=== PATIENT | female | born 1965 | race Caucasian/White ===

== ENCOUNTER 2020-07-19 07:28 | Inpatient (IN) | payer BC ==
[2020-07-19] MEDS ORDERED: methylPREDNISolone Sodium Succinate 125 MG/2 ML SDV IVPUSH ONE (07:53)
[2020-07-19] MEDS ORDERED: Sodium Chloride 0.9% 1,000 ML IV ONE (07:53)
--- NOTE | 2020-07-19 07:53 | EDM.PDOC ---
ED HPI GENERAL MEDICAL PROBLEM - General Stated Complaint: AMBULANCE Time Seen by Provider: 07/19/20 07:28 Source of Information: Reports: Patient, EMS, EMS Notes Reviewed, RN, RN Notes Reviewed History Limitations: Reports: No Limitations - History of Present Illness INITIAL COMMENTS - FREE TEXT/NARRATIVE: Patient presents to ER per [facility] with complaint of shortness of breath. Patient states she has history of asthma, states yesterday she began not feeling well. After midnight began having increased shortness of breath. Patient states she has a nebulizer at home but she has not used it for quite some time. States her inhalers are almost out. Patient denies fever chills, nausea, vomiting, diarrhea. Admits to cough with minimal production. 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 Onset: Gradual - Related Data Allergies Allergy/AdvReac Type Severity Reaction Status Date / Time No Known Allergies Allergy Verified 07/19/20 07:48 Home Meds: Home Meds Albuterol [Ventolin HFA] 1 - 2 puff IH ASDIRECTED PRN 07/19/20 [History] Budesonide/Formoterol Fumarate [Symbicort 160-4.5 Mcg Inhaler] 6 gm IH DAILY 07/19/20 [History] ED ROS GENERAL - Review of Systems Review Of Systems: Comprehensive ROS is negative, except as noted in HPI. ED EXAM, GENERAL - Physical Exam Exam: See Below Exam Limited By: No Limitations General Appearance: Alert, WD/WN, Mild Distress Eye Exam: Bilateral Eye: EOMI, Normal Inspection Ears: Normal External Exam, Hearing Grossly Normal Nose: Normal Inspection Throat/Mouth: Normal Inspection, Normal Voice, No Airway Compromise Head: Atraumatic, Normocephalic Neck: Normal Inspection, Supple, Non-Tender, Full Range of Motion Respiratory/Chest: Chest Non-Tender, Decreased Breath Sounds, Accessory Muscle Use Cardiovascular: Normal Peripheral Pulses, Regular Rate, Rhythm, No Edema, No Gallop, No JVD, No Murmur, No Rub, Tachycardia Peripheral Pulses: 2+: Radial (L), Radial (R) GI/Abdominal: Normal Bowel Sounds, Soft, Non-Tender (Female) Exam: Deferred Rectal (Female) Exam: Deferred Back Exam: Normal Inspection, Full Range of Motion, NT Extremities: Normal Inspection, Normal Range of Motion, Non-Tender, Normal Capillary Refill, No Pedal Edema Neurological: Alert, Oriented, CN II-XII Intact, Normal Cognition, Normal Gait, Normal Reflexes, No Motor/Sensory Deficits Psychiatric: Normal Affect, Normal Mood, Anxious Skin Exam: Warm, Dry, Intact, Normal Color, No Rash Lymphatic: No Adenopathy Course - Vital Signs Last Recorded V/S: Last Vital Signs Temp 98.1 F 07/19/20 07:51 Pulse 110 H 07/19/20 07:51 Resp 24 H 07/19/20 07:51 BP 117/57 L 07/19/20 07:51 Pulse Ox 92 L 07/19/20 07:51 - Orders/Labs/Meds Orders: Active Orders 24 hr Category Date Time Status Admission Diagnosis [ADT] Stat ADT 07/19/20 12:29 Ordered Admission Status [Patient Status] [ADT] Routine ADT 07/19/20 12:29 Ordered EKG Documentation Completion [RC] STAT Care 07/19/20 07:32 Active RT Aerosol Therapy [RC] ASDIRECTED Care 07/19/20 12:29 Active Labs: Laboratory Tests 07/19/20 07/19/20 07/19/20 Range/Units 07:28 07:38 07:38 WBC 11.2 H (5.0-10.0) 10^3/uL RBC 4.44 (4.2-5.4) 10^6/uL Hgb 12.8 (12.0-16.0) g/dL Hct 39.4 (37.0-47.0) % MCV 88.7 (80-100) fL MCH 28.8 (27.0-34.0) pg MCHC 32.5 L (33.0-35.0) g/dL Plt Count 236 (150-450) 10^3/uL Neut % (Auto) 83.3 H (42.2-75.2) % Lymph % (Auto) 7.8 L (20.5-50.1) % [place] % (Auto) 6.6 (2-8) % Eos % (Auto) 2.0 (1.0-3.0) % Baso % (Auto) 0.3 (0.0-1.0) % PT (9.0-12.0) SEC INR (0.9-1.2) D-Dimer, Quantitative (0-400) ng/mL Sodium 138 (136-145) mmol/L Potassium 3.0 L (3.5-5.1) mmol/L Chloride 101 (98-107) mmol/L Carbon Dioxide 25 (21-32) mmol/L Anion Gap 15.0 H (7-13) mEq/L BUN 7 (7-18) mg/dL Creatinine 0.69 (0.55-1.02) mg/dL Est Cr Clr Drug Dosing 80.94 mL/min Estimated GFR (MDRD) > 60 BUN/Creatinine Ratio 10.1 (No establ ref range) Glucose 130 H (74-99) mg/dL Calcium 8.7 (8.5-10.1) mg/dL Total Bilirubin 0.6 (0.2-1.0) mg/dL AST 28 (15-37) U/L ALT 42 (14-59) U/L Alkaline Phosphatase 123 H (46-116) U/L Troponin I < 0.017 (0.000-0.056) ng/mL C-Reactive Protein 1.8 H (0.0-0.9) mg/dL Total Protein 7.7 (6.4-8.2) g/dL Albumin 3.9 (3.4-5.0) g/dL Globulin 3.8 Albumin/Globulin Ratio 1.0 SARS CoV-2 RNA Rapid MIKAYLA Negative (NEGATIVE) 07/19/20 07/19/20 Range/Units 07:38 07:38 WBC (5.0-10.0) 10^3/uL RBC (4.2-5.4) 10^6/uL Hgb (12.0-16.0) g/dL Hct (37.0-47.0) % MCV (80-100) fL MCH (27.0-34.0) pg MCHC (33.0-35.0) g/dL Plt Count (150-450) 10^3/uL Neut % (Auto) (42.2-75.2) % Lymph % (Auto) (20.5-50.1) % Charles % (Auto) (2-8) % Eos % (Auto) (1.0-3.0) % Baso % (Auto) (0.0-1.0) % PT 9.4 (9.0-12.0) SEC INR 1.0 (0.9-1.2) D-Dimer, Quantitative 133 (0-400) ng/mL Sodium (136-145) mmol/L Potassium (3.5-5.1) mmol/L Chloride (98-107) mmol/L Carbon Dioxide (21-32) mmol/L Anion Gap (7-13) mEq/L BUN (7-18) mg/dL Creatinine (0.55-1.02) mg/dL Est Cr Clr Drug Dosing mL/min Estimated GFR (MDRD) BUN/Creatinine Ratio (No establ ref range) Glucose (74-99) mg/dL Calcium (8.5-10.1) mg/dL Total Bilirubin (0.2-1.0) mg/dL AST (15-37) U/L ALT (14-59) U/L Alkaline Phosphatase (46-116) U/L Troponin I (0.000-0.056) ng/mL C-Reactive Protein (0.0-0.9) mg/dL Total Protein (6.4-8.2) g/dL Albumin (3.4-5.0) g/dL Globulin Albumin/Globulin Ratio SARS CoV-2 RNA Rapid MIKAYLA (NEGATIVE) Meds: Medications Discontinued Medications Generic Name Dose Route Start Last Admin Trade Name Jonasq PRN Reason Stop Dose Admin Albuterol/Ipratropium 3 ml 07/19/20 12:29 Duoneb 3.0-0.5 Mg/3 Ml NEB 07/19/20 12:30 ONETIME ONE Sodium Chloride 1,000 mls @ 999 mls/hr 07/19/20 07:53 07/19/20 08:18 Normal Saline IV 07/19/20 08:53 999 mls/hr .BOLUS ONE Administration Ceftriaxone Sodium 1 gm/ 50 mls @ 100 mls/hr 07/19/20 08:51 07/19/20 09:17 Sodium Chloride IV 07/19/20 09:20 100 mls/hr ONETIME ONE Administration Magnesium Sulfate 2 gm/ Premix 50 mls @ 25 mls/hr 07/19/20 10:11 07/19/20 10:48 IV 07/19/20 12:10 200 mls/hr ONETIME ONE Infusion Methylprednisolone Sodium Succinate 125 mg 07/19/20 07:53 07/19/20 08:18 Solu-Medrol IVPUSH 07/19/20 07:54 125 mg ONETIME ONE Administration Potassium Chloride 40 meq 07/19/20 08:53 07/19/20 09:15 Klor-Con 10 PO 07/19/20 08:54 40 meq ONETIME ONE Administration - Re-Assessments/Exams Free Text/Narrative Re-Assessment/Exam: 07/19/20 12:30 Discussed patient case with Dr. Beauchamp who agreed to accept the patient for inpatient admission. Departure - Departure Time of Disposition: 12:31 Disposition: Admitted As Inpatient 64 Condition: Fair Clinical Impression: Acute asthma, Hypokalemia - Discharge Information *PRESCRIPTION DRUG MONITORING PROGRAM REVIEWED*: No *COPY OF PRESCRIPTION DRUG MONITORING REPORT IN PATIENT CLAUDIO: No Referrals: PCP,None [Primary Care Provider] - Sepsis Event Note (ED) - Focused Exam Vital Signs: Vital Signs Temp Pulse Resp BP Pulse Ox 07/19/20 07:51 98.1 F 110 H 24 H 117/57 L 92 L - My Orders Last 24 Hours: My Active Orders 07/19/20 07:32 EKG Documentation Completion [RC] STAT 07/19/20 12:29 Admission Diagnosis [ADT] Stat Admission Status [Patient Status] [ADT] Routine RT Aerosol Therapy [RC] ASDIRECTED - Assessment/Plan Last 24 Hours: My Active Orders 07/19/20 07:32 EKG Documentation Completion [RC] STAT 07/19/20 12:29 Admission Diagnosis [ADT] Stat Admission Status [Patient Status] [ADT] Routine RT Aerosol Therapy [RC] ASDIRECTED
[2020-07-19 08:12] LABS: CHLORIDE,CL 101 mmol/L (98-107); SODIUM,NA 138 mmol/L (136-145)
--- NOTE | 2020-07-19 08:46 | CR ---
PROCEDURE INFORMATION: Exam: XR Chest, 1 View Exam date and time: 07/19/2020 8:31 AM Age: 55 years old Clinical indication: Chest pain; Type not specified TECHNIQUE: Imaging protocol: XR of the chest Views: 1 view. COMPARISON: No relevant prior studies available. FINDINGS: Lungs: No lung consolidation or pulmonary edema. Pleural space: No pleural effusion or pneumothorax. Heart/Mediastinum: The cardiac silhouette is not enlarged. The mediastinal contours are normal. Bones/joints: No acute osseous abnormality. IMPRESSION: No acute abnormality.
[2020-07-19] MEDS ORDERED: cefTRIAXone 1 GM in Sodium Chloride 0.9% 50 ML IV ONE (08:51)
[2020-07-19] MEDS ORDERED: Potassium Chloride 10 MEQ Tab.ER PO ONE ×2 (08:53→14:30)
[2020-07-19] MEDS ORDERED: Magnesium Sulfate/Water 2 GM in Premix Bag 1 BAG IV ONE (10:11)
[2020-07-19] MEDS ORDERED: Albuterol/Ipratropium 3.0-0.5 MG/3 ML Neb Soln NEB ONE (12:29)
[2020-07-19] MEDS ORDERED: Albuterol 0.083% 2.5 MG/3 ML Neb Soln NEB PRN (14:05)
--- NOTE | 2020-07-19 14:09 | PCM.HP ---
H&P History of Present Illness - General Date of Service: 07/19/20 Admit Problem/Dx: Admission Diagnosis/Problem Admission Diagnosis/Problem Asthma with acute exacerbation Source of Information: Patient History Limitations: Reports: No Limitations - History of Present Illness Initial Comments - Free Text/Narative: Patient is a 55-year-old female with a history of asthma who presented to the ER with complaints of shortness of breath, wheezing and cough. Patient reports th at she has been having intermittent shortness of breath and cough for the past 1 month. This has progressively gotten worse. She has had to use her rescue inhaler more than 2 times weekly and in the last 2 days several times a day. She reports noncompliance with her medications. Today, her symptoms were severe enough that she presented to the ER. Vital signs were notable for tachycardia and tachypnea. She received nebs and magnesium sulfate. Her symptoms improved temporarily. Checks x-ray was unremarkable. Labs were significant for potassium of 3.0. - Related Data Allergies/Adverse Reactions: Allergies Allergy/AdvReac Type Severity Reaction Status Date / Time No Known Allergies Allergy Verified 07/19/20 14:05 Home Medications: Home Meds Albuterol [Ventolin HFA] 1 - 2 puff IH ASDIRECTED PRN 07/19/20 [History] Budesonide/Formoterol Fumarate [Symbicort 80-4.5 MCG] 2 puff INH DAILY 07/19/20 [History] Past Medical History HEENT History: Reports: None Cardiovascular History: Reports: None Respiratory History: Reports: Asthma Gastrointestinal History: Reports: None Genitourinary History: Reports: None SPONGE HOOKER History: Reports: None Musculoskeletal History: Reports: None Neurological History: Reports: None Psychiatric History: Reports: None Endocrine/Metabolic History: Reports: None Hematologic History: Reports: None Immunologic History: Reports: None Oncologic (Cancer) History: Reports: None Dermatologic History: Reports: None - Past Surgical History Head Surgeries/Procedures: Reports: None Social & Family History - Family History Family Medical History: Noncontributory - Tobacco Use Smoking Status *Q: Never Smoker Second Hand Smoke Exposure: No - Caffeine Use Caffeine Use: Reports: None - Recreational Drug Use Recreational Drug Use: No H&P Review of Systems - Review of Systems: Review Of Systems: See Below General: Reports: No Symptoms HEENT: Reports: No Symptoms Pulmonary: Reports: Shortness of Breath, Wheezing, Cough Cardiovascular: Reports: No Symptoms Gastrointestinal: Reports: No Symptoms Genitourinary: Reports: No Symptoms Musculoskeletal: Reports: No Symptoms Skin: Reports: No Symptoms Psychiatric: Reports: No Symptoms Neurological: Reports: No Symptoms Hematologic/Lymphatic: Reports: No Symptoms Immunologic: Reports: No Symptoms Exam - Exam Exam: See Below - Vital Signs Vital Signs: Last Vital Signs Temp 98.1 F 07/19/20 07:51 Pulse 90 07/19/20 12:36 Resp 24 H 07/19/20 07:51 BP 117/57 L 07/19/20 07:51 Pulse Ox 92 L 07/19/20 07:51 Weight: 169 lb 12.8 oz - Exam General: Alert, Oriented HEENT: Conjunctiva Clear, EOMI Neck: Supple, Trachea Midline Lungs: Normal Respiratory Effort, Wheezing Cardiovascular: Regular Rhythm, Normal S1, Normal S2, Tachycardia GI/Abdominal Exam: Normal Bowel Sounds, Non-Tender, No Distention Back Exam: Normal Inspection, Full Range of Motion Extremities: Normal Inspection, Normal Range of Motion Skin: Warm, Dry, Intact Neurological: Cranial Nerves Intact, Reflexes Equal Bilateral Neuro Extensive - Mental Status: Alert, Oriented x3, Normal Mood/Affect, Memory Intact Neuro Extensive - Motor, Sensory, Reflexes: CN II-XII Intact, Normal Gait Psychiatric: Alert, Normal Affect, Normal Mood - Patient Data Lab Results Last 24 hrs: Laboratory Results - last 24 hr 07/19/20 07/19/20 07/19/20 Range/Units 07:28 07:38 07:38 WBC 11.2 H (5.0-10.0) 10^3/uL RBC 4.44 (4.2-5.4) 10^6/uL Hgb 12.8 (12.0-16.0) g/dL Hct 39.4 (37.0-47.0) % MCV 88.7 (80-100) fL MCH 28.8 (27.0-34.0) pg MCHC 32.5 L (33.0-35.0) g/dL Plt Count 236 (150-450) 10^3/uL Neut % (Auto) 83.3 H (42.2-75.2) % Lymph % (Auto) 7.8 L (20.5-50.1) % [place] % (Auto) 6.6 (2-8) % Eos % (Auto) 2.0 (1.0-3.0) % Baso % (Auto) 0.3 (0.0-1.0) % PT (9.0-12.0) SEC INR (0.9-1.2) D-Dimer, Quantitative (0-400) ng/mL Sodium 138 (136-145) mmol/L Potassium 3.0 L (3.5-5.1) mmol/L Chloride 101 (98-107) mmol/L Carbon Dioxide 25 (21-32) mmol/L Anion Gap 15.0 H (7-13) mEq/L BUN 7 (7-18) mg/dL Creatinine 0.69 (0.55-1.02) mg/dL Est Cr Clr Drug Dosing 80.94 mL/min Estimated GFR (MDRD) > 60 BUN/Creatinine Ratio 10.1 (No establ ref range) Glucose 130 H (74-99) mg/dL Calcium 8.7 (8.5-10.1) mg/dL Total Bilirubin 0.6 (0.2-1.0) mg/dL AST 28 (15-37) U/L ALT 42 (14-59) U/L Alkaline Phosphatase 123 H (46-116) U/L Troponin I < 0.017 (0.000-0.056) ng/mL C-Reactive Protein 1.8 H (0.0-0.9) mg/dL Total Protein 7.7 (6.4-8.2) g/dL Albumin 3.9 (3.4-5.0) g/dL Globulin 3.8 Albumin/Globulin Ratio 1.0 SARS CoV-2 RNA Rapid MIKAYLA Negative (NEGATIVE) 07/19/20 07/19/20 Range/Units 07:38 07:38 WBC (5.0-10.0) 10^3/uL RBC (4.2-5.4) 10^6/uL Hgb (12.0-16.0) g/dL Hct (37.0-47.0) % MCV (80-100) fL MCH (27.0-34.0) pg MCHC (33.0-35.0) g/dL Plt Count (150-450) 10^3/uL Neut % (Auto) (42.2-75.2) % Lymph % (Auto) (20.5-50.1) % [place] % (Auto) (2-8) % Eos % (Auto) (1.0-3.0) % Baso % (Auto) (0.0-1.0) % PT 9.4 (9.0-12.0) SEC INR 1.0 (0.9-1.2) D-Dimer, Quantitative 133 (0-400) ng/mL Sodium (136-145) mmol/L Potassium (3.5-5.1) mmol/L Chloride (98-107) mmol/L Carbon Dioxide (21-32) mmol/L Anion Gap (7-13) mEq/L BUN (7-18) mg/dL Creatinine (0.55-1.02) mg/dL Est Cr Clr Drug Dosing mL/min Estimated GFR (MDRD) BUN/Creatinine Ratio (No establ ref range) Glucose (74-99) mg/dL Calcium (8.5-10.1) mg/dL Total Bilirubin (0.2-1.0) mg/dL AST (15-37) U/L ALT (14-59) U/L Alkaline Phosphatase (46-116) U/L Troponin I (0.000-0.056) ng/mL C-Reactive Protein (0.0-0.9) mg/dL Total Protein (6.4-8.2) g/dL Albumin (3.4-5.0) g/dL Globulin Albumin/Globulin Ratio SARS CoV-2 RNA Rapid MIKAYLA (NEGATIVE) Result Diagrams: 07/19/20 07:38 07/19/20 07:38 Problem List Initiated/Reviewed/Updated: Yes Orders Last 24hrs: Active Orders 24 hr Category Date Time Status Admission Diagnosis [ADT] Stat ADT 07/19/20 12:29 Ordered Admission Status [Patient Status] [ADT] Routine ADT 07/19/20 12:29 Active Antiembolic Devices [RC] PER UNIT ROUTINE Care 07/19/20 14:07 Ordered Oxygen Therapy [RC] PRN Care 07/19/20 14:05 Ordered RT Aerosol Therapy [RC] ASDIRECTED Care 07/19/20 14:07 Ordered Up ad Anabella [RC] ASDIRECTED Care 07/19/20 14:05 Ordered VTE/DVT Education [RC] PER UNIT ROUTINE Care 07/19/20 14:05 Ordered Vital Signs [RC] Q4H Care 07/19/20 14:05 Ordered Regular Diet [DIET] Diet 07/19/20 Lunch Ordered Albuterol [Proventil Neb Soln] Med 07/19/20 14:05 Ordered 2.5 mg NEB Q4HRRT PRN Albuterol/Ipratropium [DuoNeb 3.0-0.5 MG/3 ML] Med 07/19/20 18:00 Ordered 3 ml NEB Q6HRRT Heparin Sodium Med 07/19/20 22:00 Ordered 5,000 units SUBCUT Q8HR predniSONE Med 07/20/20 14:08 Ordered 40 mg PO WITHBREAKFAST Antiembolic Hose [OM.PC] Per Unit Routine Oth 07/19/20 14:05 Ordered Resuscitation Status Routine Resus Stat 07/19/20 14:05 Ordered Assessment/Plan Comment:: Acute asthma exacerbation Scheduled duo nebs PRN albuterol Prednisone 40 mg daily x5 days Oxygen supplementation as needed Hypokalemia Replace potassium Repeat BMP tomorrow morning
[2020-07-19] MEDS: Heparin Sodium 5,000 Units/ML Vial SUBCUT SCH ×2 (15:18→21:32)
[2020-07-19] MEDS: POTASSIUM CHLORIDE IV SCH ×4 (15:18→20:08)
[2020-07-19] MEDS: LIDOCAINE 1% IV SCH ×4 (15:18→20:08)
[2020-07-19] MEDS ORDERED: Sodium Chloride 0.9% 10 ML Syringe FLUSH PRN (15:56)
[2020-07-19] MEDS: Albuterol/Ipratropium 3.0-0.5 MG/3 ML Neb Soln NEB SCH (18:26)
[2020-07-20] MEDS: Albuterol/Ipratropium 3.0-0.5 MG/3 ML Neb Soln NEB SCH ×2 (00:57→07:15)
[2020-07-20] MEDS: Heparin Sodium 5,000 Units/ML Vial SUBCUT SCH (05:19)
[2020-07-20 11:53] LABS: ANION GAP 13.9 mEq/L (7-13); CHLORIDE,CL 102 mmol/L (98-107); SODIUM,NA 137 mmol/L (136-145)
--- NOTE | 2020-07-20 13:00 | PCM.DCSUM1 ---
Discharge Summary - Hospital Course Free Text/Narrative:: Patient is a 55-year-old female with a history of asthma who presented to the ER with complaints of worsening shortness of breath, wheezing and cough Over the course of 1 month. She also reported noncompliance with medications. Checks x- ray was unremarkable. Labs were significant for potassium of 3.0. Patient received duo nebs and prednisone for acute asthma exacerbation, and potassium replacement for hypokalemia. Her respiratory status improved. She had leukocytosis which was likely stress-induced and also due to steroids received. Diagnosis: Stroke: No - Discharge Data Discharge Date: 07/20/20 Discharge Disposition: Home, Self-Care 01 Condition: Good - Referral to Home Health Primary Care Physician: Sofia Ellington NP - Patient Instructions Diet: Regular Diet as Tolerated Activity: As Tolerated - Discharge Plan *PRESCRIPTION DRUG MONITORING PROGRAM REVIEWED*: Not Applicable *COPY OF PRESCRIPTION DRUG MONITORING REPORT IN PATIENT CLAUDIO: Not Applicable Prescriptions/Med Rec: predniSONE 40 mg PO WITHBREAKFAST #3 tablet Home Medications: Home Meds Albuterol [Ventolin HFA] 1 - 2 puff IH ASDIRECTED PRN 07/19/20 [History] Budesonide/Formoterol Fumarate [Symbicort 80-4.5 MCG] 2 puff INH DAILY 07/19/20 [History] predniSONE 40 mg PO WITHBREAKFAST #3 tablet 07/20/20 [Rx] Oxygen Therapy Mode: Room Air Patient Handouts: Bronchospasm, Adult, [id number], Asthma, Adult, [id number] Referrals: Sofia Ellington NP [Primary Care Provider] - - Discharge Summary/Plan Comment DC Time >30 min.: Yes - General Info Date of Service: 07/20/20 Admission Dx/Problem (Free Text: Admission Diagnosis/Problem Admission Diagnosis/Problem Asthma with acute exacerbation Subjective Update: Patient seen and examined today. She is doing a lot better. Still having coughing but not short of breath. She was able to walk around the halls with good oxygen saturation. Functional Status: Reports: Pain Controlled - Review of Systems General: Reports: No Symptoms HEENT: Reports: No Symptoms Pulmonary: Reports: Cough. Denies: Shortness of Breath, Wheezing Cardiovascular: Reports: No Symptoms Gastrointestinal: Reports: No Symptoms Genitourinary: Reports: No Symptoms Musculoskeletal: Reports: No Symptoms Skin: Reports: No Symptoms Neurological: Reports: No Symptoms Psychiatric: Reports: No Symptoms - Patient Data Vitals - Most Recent: Last Vital Signs Temp 99.2 F 07/20/20 07:47 Pulse 84 07/20/20 11:47 Resp 20 07/20/20 07:47 BP 124/64 07/20/20 07:47 Pulse Ox 93 L 07/20/20 07:47 Weight - Most Recent: 169 lb 12.8 oz I&O - Last 24 hours: Intake & Output 07/19/20 07/20/20 07/20/20 22:59 06:59 14:59 Intake Total 399 910 350 Balance 399 910 350 Lab Results - Last 24 hrs: Laboratory Results - last 24 hr 07/20/20 07/20/20 Range/Units 11:25 11:25 WBC 12.4 H (5.0-10.0) 10^3/uL RBC 4.39 (4.2-5.4) 10^6/uL Hgb 12.6 (12.0-16.0) g/dL Hct 38.9 (37.0-47.0) % MCV 88.6 (80-100) fL MCH 28.7 (27.0-34.0) pg MCHC 32.4 L (33.0-35.0) g/dL Plt Count 275 (150-450) 10^3/uL Sodium 137 (136-145) mmol/L Potassium 3.9 (3.5-5.1) mmol/L Chloride 102 (98-107) mmol/L Carbon Dioxide 25 (21-32) mmol/L Anion Gap 13.9 H (7-13) mEq/L BUN 11 (7-18) mg/dL Creatinine 0.65 (0.55-1.02) mg/dL Est Cr Clr Drug Dosing 85.93 mL/min Estimated GFR (MDRD) > 60 Glucose 107 H (74-99) mg/dL Calcium 9.5 (8.5-10.1) mg/dL Med Orders - Current: Current Medications Albuterol (Proventil Neb Soln) 2.5 mg NEB Q4HRRT PRN PRN Reason: Dyspnea Albuterol/Ipratropium (Duoneb 3.0-0.5 Mg/3 Ml) 3 ml NEB Q6HRRT MARIAJOSE Last Admin: 07/20/20 07:15 Dose: 3 ml Documented by: Heparin Sodium (Porcine) (Heparin Sodium) 5,000 units SUBCUT Q8HR [facility] Last Admin: 07/20/20 05:19 Dose: 5,000 units Documented by: Prednisone (Prednisone) 40 mg PO WITHBREAKFAST [facility] Sodium Chloride (Saline Flush) 10 ml FLUSH ASDIRECTED PRN PRN Reason: Keep Vein Open Discontinued Medications Albuterol/Ipratropium (Duoneb 3.0-0.5 Mg/3 Ml) 3 ml NEB ONETIME ONE Stop: 07/19/20 12:30 Last Admin: 07/19/20 12:36 Dose: 3 ml Documented by: Sodium Chloride (Normal Saline) 1,000 mls @ 999 mls/hr IV .BOLUS ONE Stop: 07/19/20 08:53 Last Admin: 07/19/20 08:18 Dose: 999 mls/hr Documented by: Ceftriaxone Sodium 1 gm/ (Sodium Chloride) 50 mls @ 100 mls/hr IV ONETIME ONE Stop: 07/19/20 09:20 Last Admin: 07/19/20 09:17 Dose: 100 mls/hr Documented by: Magnesium Sulfate 2 gm/ Premix 50 mls @ 25 mls/hr IV ONETIME ONE Stop: 07/19/20 12:10 Last Infusion: 07/19/20 10:48 Dose: 200 mls/hr Documented by: Potassium Chloride 10 meq/ (Lidocaine HCl 1 ml/ Premix) 101 mls @ 101 mls/hr IV Q1H MARIAJOSE Stop: 07/19/20 18:59 Last Infusion: 07/19/20 21:17 Dose: Infused Documented by: Methylprednisolone Sodium Succinate (Solu-Medrol) 125 mg IVPUSH ONETIME ONE Stop: 07/19/20 07:54 Last Admin: 07/19/20 08:18 Dose: 125 mg Documented by: Potassium Chloride (Klor-Con 10) 40 meq PO ONETIME ONE Stop: 07/19/20 08:54 Last Admin: 07/19/20 09:15 Dose: 40 meq Documented by: Potassium Chloride (Klor-Con 10) 40 meq PO ONETIME ONE Stop: 07/19/20 14:31 Last Admin: 07/19/20 15:18 Dose: 40 meq Documented by: - Exam General: Reports: Alert, Oriented HEENT: Reports: Pupils Equal, Pupils Reactive, EOMI, Mucous Membr. Moist/[place] Neck: Reports: Supple Lungs: Reports: Clear to Auscultation, Normal Respiratory Effort Cardiovascular: Reports: Regular Rate, Regular Rhythm GI/Abdominal Exam: Normal Bowel Sounds, Soft, Non-Tender, No Organomegaly, No Distention, No Abnormal Bruit, No Mass, Pelvis Stable Back Exam: Reports: Normal Inspection, Full Range of Motion Extremities: Normal Inspection, Normal Range of Motion, Non-Tender, No Pedal Edema, Normal Capillary Refill Skin: Reports: Warm, Dry, Intact Neurological: Reports: No New Focal Deficit Psy/Mental Status: Reports: Alert, Normal Affect, Normal Mood
[2020-07-20] MEDS ORDERED: predniSONE 20 MG Tab PO SCH (14:30)
== END 2020-07-20 13:30 | disposition home or self-care (01) | DRG 141 ==
LOC: DL.ED 07:28 → DL.MS 12:29 → DL.ED 13:20
PROVIDERS: ADMIT Internal Medicine; ATTEND Internal Medicine
DX: J45.901 Unspecified asthma with (acute) exacerbation (principal); E87.6 Hypokalemia; D72.829 Elevated white blood cell count, unspecified; T38.0X5A Adverse effect of glucocorticoids and synthetic analogues, initial encounter; Z91.19 Patient's noncompliance with other medical treatment and regimen; Z79.52 Long term (current) use of systemic steroids; Z79.899 Other long term (current) drug therapy; Z20.828 Contact with and (suspected) exposure to other viral communicable diseases
CPT/HCPCS: 36415; 71045; 80048; 80053; 84484; 85025; 85027; 85379; 85610; 86140; 93005; 94640; 96361; 96365; 96367; 96375; 99285-25; A9270-GY; J0696; J1644; J2001; J2930; J3475; J3480; J7030; J7050; J7512; J7620-GY; U0002

== ENCOUNTER 2020-11-08 10:04 | Emergency (ER) | payer BC ==
--- NOTE | 2020-11-08 10:45 | EDM.PDOC ---
ED HPI GENERAL MEDICAL PROBLEM - General Chief Complaint: General Stated Complaint: NAUSEU, ASTHMA Time Seen by Provider: 11/08/20 10:35 Source of Information: Reports: Patient, RN, RN Notes Reviewed History Limitations: Reports: No Limitations - History of Present Illness INITIAL COMMENTS - FREE TEXT/NARRATIVE: Patient presents to the ED via personal vehicle with complaints of nausea and cough. The patient states she was at the local [facility] earlier today when she was instructed by the individuals there to come to the ED for testing. She states she has been experiencing dry cough, which is not new as she has a history of asthma for which she takes Symbicort daily. She has had to use her Albuterol rescue inhaler x1 yesterday night. Additionally, she attest to mild nausea since 11/03/20. She denies fever, shaking chills, headache, muscle aches, fatigue, chest pain, palpitations, shortness of breath, vomiting, or diarrhea. She denies tobacco or recreational drug use; she drinks socially with a last drink on 10/30/20. The patient states she feels "..pretty good" and only presents to the ED with her as she was instructed to do so. - Related Data Allergies Allergy/AdvReac Type Severity Reaction Status Date / Time No Known Allergies Allergy Verified 11/08/20 10:26 Home Meds: Home Meds Albuterol [Ventolin HFA] 1 - 2 puff IH ASDIRECTED PRN 07/19/20 [History] Budesonide/Formoterol Fumarate [Symbicort 80-4.5 MCG] 2 puff INH DAILY 07/19/20 [History] Past Medical History HEENT History: Reports: None Cardiovascular History: Reports: None Respiratory History: Reports: Asthma Gastrointestinal History: Reports: None Genitourinary History: Reports: None UX SPECIALIST History: Reports: None Musculoskeletal History: Reports: None Neurological History: Reports: None Psychiatric History: Reports: None Endocrine/Metabolic History: Reports: None Hematologic History: Reports: None Immunologic History: Reports: None Oncologic (Cancer) History: Reports: None Dermatologic History: Reports: None - Past Surgical History Head Surgeries/Procedures: Reports: None Social & Family History - Family History Family Medical History: No Pertinent Family History - Tobacco Use Tobacco Use Status *Q: Never Tobacco User Second Hand Smoke Exposure: No - Caffeine Use Caffeine Use: Reports: None - Recreational Drug Use Recreational Drug Use: No ED ROS GENERAL - Review of Systems Review Of Systems: Comprehensive ROS is negative, except as noted in HPI. ED EXAM, GENERAL - Physical Exam Exam: See Below Exam Limited By: No Limitations General Appearance: Alert, WD/WN, No Apparent Distress Eye Exam: Bilateral Eye: EOMI, Normal Inspection, PERRL (4mm) Ears: Normal External Exam, Normal Canal, Hearing Grossly Normal, Normal TMs Ear Exam: Bilateral Ear: Auricle Normal, Canal Normal, TM normal Nose: Normal Inspection, Normal Mucosa, No Blood Head: Atraumatic, Normocephalic Neck: Normal Inspection, Supple, Non-Tender, Full Range of Motion, Lymphadenopathy (R). No: Lymphadenopathy (L) Respiratory/Chest: No Accessory Muscle Use, Chest Non-Tender, Decreased Breath Sounds, Wheezing (Inspiratory to left upper lobe) Cardiovascular: Normal Peripheral Pulses, Regular Rate, Rhythm, No Edema, No Gallop, No JVD, No Murmur, No Rub Peripheral Pulses: 2+: Radial (L), Radial (R), Dorsalis Pedis (L), Dorsalis Pedis (R) GI/Abdominal: Normal Bowel Sounds, Soft, Non-Tender, No Distention, No Mass, Pelvis Stable (Female) Exam: Deferred Rectal (Female) Exam: Deferred Back Exam: Normal Inspection, Full Range of Motion Extremities: Normal Inspection, Normal Range of Motion, Non-Tender, Normal Capillary Refill, No Pedal Edema Neurological: Alert, Oriented, CN II-XII Intact, Normal Cognition, Normal Gait, No Motor/Sensory Deficits Psychiatric: Normal Affect, Normal Mood Skin Exam: Warm, Dry, Intact, Normal Color, No Rash. No: Ecchymosis, Erythema, Jaundice, Mottled, Pallor, Petechiae Course - Vital Signs Last Recorded V/S: Last Vital Signs Temp 95.1 F L 11/08/20 10:18 Pulse 79 11/08/20 10:18 Resp 16 11/08/20 10:18 BP 125/65 11/08/20 10:18 Pulse Ox 97 11/08/20 10:18 - Orders/Labs/Meds Labs: Laboratory Tests 11/08/20 11/08/20 11/08/20 Range/Units 10:15 11:35 11:35 WBC 3.3 L (5.0-10.0) 10^3/uL RBC 4.83 (4.2-5.4) 10^6/uL Hgb 13.7 (12.0-16.0) g/dL Hct 42.1 (37.0-47.0) % MCV 87.2 (80-100) fL MCH 28.4 (27.0-34.0) pg MCHC 32.5 L (33.0-35.0) g/dL Plt Count 232 (150-450) 10^3/uL Neut % (Auto) 49.5 (42.2-75.2) % Lymph % (Auto) 34.9 (20.5-50.1) % [place] % (Auto) 10.4 H (2-8) % Eos % (Auto) 4.6 H (1.0-3.0) % Baso % (Auto) 0.6 (0.0-1.0) % Sodium 140 (136-145) mmol/L Potassium 4.8 (3.5-5.1) mmol/L Chloride 103 (98-107) mmol/L Carbon Dioxide 27 (21-32) mmol/L Anion Gap 14.8 H (7-13) mEq/L BUN 9 (7-18) mg/dL Creatinine 0.65 (0.55-1.02) mg/dL Est Cr Clr Drug Dosing 85.93 mL/min Estimated GFR (MDRD) > 60 BUN/Creatinine Ratio 13.8 (No establ ref range) Glucose 98 (74-99) mg/dL Calcium 9.6 (8.5-10.1) mg/dL Total Bilirubin 1.1 H (0.2-1.0) mg/dL AST 22 (15-37) U/L ALT 48 (14-59) U/L Alkaline Phosphatase 103 (46-116) U/L Total Protein 8.1 (6.4-8.2) g/dL Albumin 4.4 (3.4-5.0) g/dL Globulin 3.7 Albumin/Globulin Ratio 1.2 Influenza Type A RNA Negative (NEGATIVE) Influenza Type B RNA Negative (NEGATIVE) SARS-CoV-2 RNA (MIKAYLA) Positive H (NEGATIVE) - Re-Assessments/Exams Free Text/Narrative Re-Assessment/Exam: 01/13/21 COVID screen positive. CBC and CMP unremarkable for acute processes. CXR unremarkable for acute processes. Given increase in wheezes will treat empirically with Azithromycin. Discussed findings with patient who verbalized understanding and agreement with the plan of care. Departure - Departure Time of Disposition: 12:22 Disposition: Home, Self-Care 01 Condition: Good Clinical Impression: COVID-19 virus infection Upper respiratory infection Qualifiers: URI type: unspecified viral URI Qualified Code(s): J06.9 - Acute upper respiratory infection, unspecified - Discharge Information *PRESCRIPTION DRUG MONITORING PROGRAM REVIEWED*: Not Applicable *COPY OF PRESCRIPTION DRUG MONITORING REPORT IN PATIENT CLAUDIO: Not Applicable Instructions: COVID-19 Frequently Asked Questions, COVID-19: How to Protect Yourself and Others - [facility], Prevent the Spread of COVID-19 if You Are Sick - [facility] Referrals: PCP,None [Primary Care Provider] - Forms: ED Department Discharge Additional Instructions: Rx: Azithromycin 1.) Follow the [facility] Department guidelines regarding quarantine for coronavirus. 2.) Drink plenty of water to stay hydrated. 3.) You may take acetaminophen (Tylenol) 650mg every six hours as needed for fever/headache/muscle aches. You may take ibuprofen (Advil/Motrin) 400mg every six hours as needed for fever/headache/muscle aches. You may stagger these medications so you are taking a dose of medicine every three hours. Sepsis Event Note (ED) - Evaluation Sepsis Screening Result: No Definite Risk - Focused Exam Vital Signs: Vital Signs Temp Pulse Resp BP Pulse Ox 11/08/20 10:18 95.1 F L 79 16 125/65 97
[2020-11-08 11:23] LABS: CORONAVIRUS COVID-19 NAA POSITIVE (NEGATIVE)
[2020-11-08 12:08] LABS: ANION GAP 14.8 mEq/L (7-13); CHLORIDE,CL 103 mmol/L (98-107); SODIUM,NA 140 mmol/L (136-145)
--- NOTE | 2020-11-08 12:16 | CR ---
EXAMINATION: Chest 1V Frontal SEX: Female AGE: 55 years CLINICAL HISTORY: 55-year-old female with history of asthma, wheezing and now SHORTNESS OF BREATH (SOB). Comparison exam 19 July 2020. Interpretation: 1. Brassiere hardware artifact 2. Normal cardiac silhouette (size and configuration). No new pulmonary vascular congestion, cephalization of flow, alveolar edema or dependent pleural effusion. 3. No new focal lobar alveolar consolidation, air bronchograms, or peripheral "groundglass" lung densities. 4. No lung mass or hilar lymphadenopathy. 5. Bony thorax unremarkable. No pneumothorax or pneumomediastinum. Normal trachea. CONCLUSION: No acute new cardiopulmonary abnormality (comparison 19 July 2020).
== END 2020-11-08 12:32 | disposition home or self-care (01) ==
LOC: DL.ED 10:04
DX: U07.1 COVID-19 (principal); J06.9 Acute upper respiratory infection, unspecified
CPT/HCPCS: 0240U; 36415; 71045; 80053; 85025; 99283

== ENCOUNTER 2024-02-29 15:31 | Inpatient (IN) | payer BC ==
[2024-02-29] MEDS: Sodium Chloride 0.9% 1,000 ML IV ONE ×2 (16:30→17:03)
[2024-02-29] MEDS: Ondansetron 4 MG/2 ML SDV IV ONE (16:32)
[2024-02-29] MEDS: Acetaminophen 500 MG Tab PO ONE (16:40)
[2024-02-29] MEDS: methylPREDNISolone Sodium Succinate 125 MG/2 ML SDV IVPUSH ONE (16:45)
[2024-02-29] MEDS: Albuterol/Ipratropium 3.0-0.5 MG/3 ML Neb Soln NEB ONE ×2 (16:55→18:10)
[2024-02-29] MEDS: Cefepime 2 GM Vial IVPUSH ONE (17:12)
[2024-02-29 17:39] LABS: HEMATOCRIT 35.3 % (37.0-47.0); HEMOGLOBIN 11.6 g/dL (12.0-16.0); MEAN CORPUSCULAR HEMOGLOBIN 27.7 pg (27.0-34.0); MEAN CORPUSCULAR HGB CONC 32.9 g/dL (33.0-35.0); MEAN CORPUSCULAR VOLUME 84.2 fL (80-100); PLATELET COUNT,PLT 277 10^3/uL (150-450); RED BLOOD CELL COUNT 4.19 10^6/uL (4.2-5.4); WHITE BLOOD CELL COUNT,WBC 19.3 10^3/uL (5.0-10.0)
[2024-02-29 17:50] LABS: LYMPHOCYTES PERCENT AUTO 5.9 % (20.5-50.1); MONOCYTES PERCENT AUTO 9.6 % (2-8); NEUTROPHILS PERCENT AUTO 84.3 % (42.2-75.2)
[2024-02-29 17:51] LABS: BASOPHILS PERCENT AUTO 0.2 % (0.0-1.0)
[2024-02-29 17:55] LABS: ALBUMIN 3.3 g/dL (3.4-5.0); ANION GAP 18.7 mEq/L (7-13); BILIRUBIN TOTAL 1.9 mg/dL (0.2-1.0); BUN/CREATININE RATIO 16.9 (No establ ref range); CREATININE 0.83 mg/dL (0.55-1.02); EST CRCL DRUG DOSING (CG) 64.86 mL/min; MAGNESIUM 2.2 mg/dL (1.8-2.4); POTASSIUM,K 3.7 mmol/L (3.5-5.1); PROTEIN TOTAL,TP 8.4 g/dL (6.4-8.2)
[2024-02-29 18:01] LABS: LACTIC ACID 1.3 mmol/L (0.4-2.0)
[2024-02-29 18:11] LABS: A/G RATIO 0.65
[2024-02-29] MEDS: Sodium Chloride 0.9% 10 ML Syringe FLUSH PRN (18:13)
[2024-02-29 18:21] LABS: CORONAVIRUS COVID-19 NAA NEGATIVE (NEGATIVE); INFLUENZA A NAA NEGATIVE (NEGATIVE); INFLUENZA B NAA NEGATIVE (NEGATIVE); RESPIRATORY SYNCYTIAL VIR NAA NEGATIVE (NEGATIVE)
[2024-02-29 18:48] LABS: BAND PERCENT MAN 8 %; LYMPHOCYTES PERCENT MAN 5 % (20-50); MONOCYTES PERCENT MAN 7 % (2-8); SEG NEUTROPHILS PERCENT MAN 80 % (42-75)
[2024-02-29] MEDS: Sodium Chloride 0.9% 500 ML IV SCH (18:49)
[2024-02-29] MEDS ORDERED: Acetaminophen/HYDROcodone 325-5 MG Tab PO PRN (20:11)
[2024-02-29] MEDS ORDERED: Docusate Sodium 100 MG Cap PO PRN (20:11)
[2024-02-29] MEDS ORDERED: Acetaminophen 325 MG Tab PO PRN (20:11)
[2024-02-29] MEDS ORDERED: Bisacodyl 5 MG Tab PO PRN (20:11)
[2024-02-29] MEDS: Azithromycin 500 MG in Sodium Chloride 0.9% 250 ML IV ONE (20:49)
[2024-02-29] MEDS: Melatonin 3 MG Tab PO PRN (23:10)
[2024-03-01] MEDS: Albuterol/Ipratropium 3.0-0.5 MG/3 ML Neb Soln NEB PRN (03:48)
[2024-03-01] MEDS: Ondansetron 4 MG/2 ML SDV IVPUSH PRN (03:48)
[2024-03-01] MEDS: guaiFENesin 100 MG/5 ML Soln 5 ML UD Cup PO PRN (04:34)
[2024-03-01] MEDS: methylPREDNISolone Sodium Succinate 125 MG/2 ML SDV IVPUSH SCH (04:34)
[2024-03-01 06:14] LABS: BASOPHILS PERCENT AUTO 0.2 % (0.0-1.0); HEMATOCRIT 32.6 % (37.0-47.0); HEMOGLOBIN 10.4 g/dL (12.0-16.0); LYMPHOCYTES PERCENT AUTO 6.1 % (20.5-50.1); MEAN CORPUSCULAR HEMOGLOBIN 27.4 pg (27.0-34.0); MEAN CORPUSCULAR HGB CONC 31.9 g/dL (33.0-35.0); MONOCYTES PERCENT AUTO 5.1 % (2-8); NEUTROPHILS PERCENT AUTO 88.6 % (42.2-75.2); PLATELET COUNT,PLT 220 10^3/uL (150-450); RED BLOOD CELL COUNT 3.79 10^6/uL (4.2-5.4); WHITE BLOOD CELL COUNT,WBC 11.5 10^3/uL (5.0-10.0)
[2024-03-01 06:30] LABS: ANION GAP 14.2 mEq/L (7-13); CALCIUM 8.3 mg/dL (8.5-10.1); CREATININE 0.58 mg/dL (0.55-1.02); EST CRCL DRUG DOSING (CG) 92.82 mL/min; POTASSIUM,K 3.2 mmol/L (3.5-5.1)
[2024-03-01] MEDS: Potassium Chloride 10 MEQ Tab.ER PO ONE (09:10)
[2024-03-01] MEDS: Enoxaparin 40 MG/0.4 ML Syringe SUBCUT SCH (09:10)
[2024-03-01] MEDS: Azithromycin 250 MG Tab PO SCH (09:10)
[2024-03-01] MEDS: cefTRIAXone 1 GM Vial IVPUSH SCH (09:51)
[2024-03-01] MEDS: Albuterol 6.7 GM Inhaler INH PRN (10:24)
[2024-03-01] MEDS: Formoterol/Mometasone 100-5 MCG 8.8 GM Inhaler IH SCH (17:26)
[2024-03-01] MEDS: Omeprazole 20 MG Cap.CR PO PRN (17:44)
[2024-03-02] MEDS ORDERED: Formoterol/Mometasone 100-5 MCG 8.8 GM Inhaler IH SCH ×3 (06:38→09:00)
[2024-03-02 06:57] LABS: HEMATOCRIT 30.8 % (37.0-47.0); HEMOGLOBIN 9.8 g/dL (12.0-16.0); MEAN CORPUSCULAR HEMOGLOBIN 27.7 pg (27.0-34.0); MEAN CORPUSCULAR HGB CONC 31.8 g/dL (33.0-35.0); MONOCYTES PERCENT AUTO 5.5 % (2-8); NEUTROPHILS PERCENT AUTO 87.5 % (42.2-75.2); PLATELET COUNT,PLT 281 10^3/uL (150-450); RED BLOOD CELL COUNT 3.54 10^6/uL (4.2-5.4); WHITE BLOOD CELL COUNT,WBC 10.3 10^3/uL (5.0-10.0)
[2024-03-02 07:12] LABS: ANION GAP 14.8 mEq/L (7-13); CALCIUM 8.9 mg/dL (8.5-10.1); CREATININE 0.7 mg/dL (0.55-1.02); EST CRCL DRUG DOSING (CG) 76.9 mL/min; POTASSIUM,K 4.8 mmol/L (3.5-5.1)
== END 2024-03-02 10:20 | disposition home or self-care (01) | DRG 720 ==
LOC: DL.ED 15:31 → DL.MS 19:12 → DL.ED 19:20 → OBSVTOIN 03-01 09:08
PROVIDERS: ADMIT Internal Medicine; ATTEND Internal Medicine
DX: A41.9 Sepsis, unspecified organism (principal); J18.9 Pneumonia, unspecified organism; J45.909 Unspecified asthma, uncomplicated; G72.81 Critical illness myopathy; R65.20 Severe sepsis without septic shock; Z86.16 Personal history of COVID-19; R19.7 Diarrhea, unspecified; R11.2 Nausea with vomiting, unspecified; Z79.899 Other long term (current) drug therapy
CPT/HCPCS: 0241U; 36415; 71045; 80048; 80053; 83605; 83735; 84145; 84484; 85025; 87040; 87081; 87430; 94640; 94664; 94667; 96361; 96365; 96366; 96367; 96375; 96376; 99232; 99238; 99285; 99285-25; A9270-GY; G0378; J0456; J0692; J0696; J1650; J2405; J2930; J3370; J3490; J7030; J7040; J7050; J7620-GY

== ENCOUNTER 2025-02-07 17:33 | Emergency (ER) | payer BC ==
[2025-02-07] MEDS ORDERED: Sodium Chloride 0.9% 10 ML Syringe FLUSH PRN ×2 (17:42)
[2025-02-07] MEDS: LORazepam 2 MG/ML SDV IVPUSH ONE (17:50)
[2025-02-07 18:02] LABS: BASOPHILS PERCENT AUTO 0.3 % (0.0-1.0); EOSINOPHILS PERCENT AUTO 1.5 % (1.0-3.0); HEMATOCRIT 40.6 % (37.0-47.0); HEMOGLOBIN 13.1 g/dL (12.0-16.0); LYMPHOCYTES PERCENT AUTO 31.8 % (20.5-50.1); MEAN CORPUSCULAR HEMOGLOBIN 27.5 pg (27.0-34.0); MEAN CORPUSCULAR HGB CONC 32.3 g/dL (33.0-35.0); MEAN CORPUSCULAR VOLUME 85.3 fL (80-100); MONOCYTES PERCENT AUTO 7.3 % (2-8); NEUTROPHILS PERCENT AUTO 59.1 % (42.2-75.2); PLATELET COUNT,PLT 439 10^3/uL (150-450); RED BLOOD CELL COUNT 4.76 10^6/uL (4.2-5.4); WHITE BLOOD CELL COUNT,WBC 11.7 10^3/uL (5.0-10.0)
[2025-02-07 18:24] LABS: ALANINE AMINOTRANSFERASE,ALT 22 U/L (14-59); ALBUMIN 4.4 g/dL (3.4-5.0); ALKALINE PHOSPHATASE 118 U/L (46-116); ANION GAP 19.6 mEq/L (7-13); ASPARTATE AMNIOTRANSFERASE,AST 12 U/L (15-37); BLOOD UREA NITROGEN,BUN 11 mg/dL (7-18); BUN/CREATININE RATIO 14.3 (No establ ref range); CALCIUM 10.2 mg/dL (8.5-10.1); CARBON DIOXIDE,CO2 24 mmol/L (21-32); CHLORIDE,CL 100 mmol/L (98-107); CREATININE 0.77 mg/dL (0.55-1.02); EST CRCL DRUG DOSING (CG) 69.04 mL/min; GLUCOSE RANDOM 100 mg/dL (70-99); POTASSIUM,K 3.6 mmol/L (3.5-5.1); PROTEIN TOTAL,TP 8.6 g/dL (6.4-8.2); SODIUM,NA 140 mmol/L (136-145)
[2025-02-07 18:25] LABS: ESTIMATED GFR 88 mL/min (>=60)
== END 2025-02-07 18:56 | disposition home or self-care (01) ==
LOC: DL.ED 17:33
DX: R06.02 Shortness of breath (principal); F41.9 Anxiety disorder, unspecified; J45.909 Unspecified asthma, uncomplicated; Z79.899 Other long term (current) drug therapy; Z86.16 Personal history of COVID-19; Z79.51 Long term (current) use of inhaled steroids
CPT/HCPCS: 36415; 71045; 80053; 84484; 85025; 85379; 93005; 93010; 96374; 99284; 99285-25; J2060

== ENCOUNTER 2025-09-02 06:24 | Day surgery (SDC) | payer BC ==
[2025-09-02] MEDS ORDERED: Lactated Ringers 1,000 ML IV ONE (06:25)
[2025-09-02] MEDS ORDERED: Propofol 200 MG/20 ML SDV IV ONE (06:25)
[2025-09-02] MEDS: Lactated Ringers 1,000 ML IV SCH (06:58)
[2025-09-02] MEDS ORDERED: Propofol 200 MG/20 ML SDV ONE (09:02)
== END 2025-09-02 09:17 | disposition home or self-care (01) ==
LOC: DL.ENDO 06:24
PROVIDERS: ATTEND Internal Medicine Gastroenterology
DX: K22.89 Other specified disease of esophagus (principal); K44.9 Diaphragmatic hernia without obstruction or gangrene; K21.9 Gastro-esophageal reflux disease without esophagitis; J44.89 Other specified chronic obstructive pulmonary disease; Z88.6 Allergy status to analgesic agent; Z91.048 Other nonmedicinal substance allergy status; Z79.899 Other long term (current) drug therapy
CPT/HCPCS: 43239; J2003; J2704; J7120; S5010